=== PATIENT | female | born 1990 | race African-American/Black ===

== ENCOUNTER 2016-08-01 20:01 | Emergency (ER) | payer MEDICAID ==
[~2016-08-01] VITALS: Ht 160 cm; Wt 93.9 kg
[2016-08-01 20:25] VITALS: BP 145/89
== END 2016-08-01 23:21 | disposition left against medical advice (07) ==
LOC: ER 20:05
DX: M79.604 Pain in right leg (principal); Z53.21 Procedure and treatment not carried out due to patient leaving prior to being seen by health care provider

== ENCOUNTER 2016-09-06 16:33 | Emergency (ER) | payer MEDICAID ==
[~2016-09-06] VITALS: Ht 160 cm; Wt 93.4 kg
[2016-09-06 16:38] VITALS: BP 140/62
[2016-09-06] MEDS ORDERED: KETOROLAC TROMETH 60MG/2ML VIAL IM ONE (17:15)
== END 2016-09-06 18:10 | disposition home or self-care (01) ==
LOC: ER 16:35
DX: S16.1XXA Strain of muscle, fascia and tendon at neck level, initial encounter (principal); V49.49XA Driver injured in collision with other motor vehicles in traffic accident, initial encounter; Y93.89 Activity, other specified; Y99.8 Other external cause status; Y92.410 Unspecified street and highway as the place of occurrence of the external cause
CPT/HCPCS: 72040; 96372; 99284; J1885

== ENCOUNTER 2016-09-16 18:00 | Emergency (ER) | payer MEDICAID ==
[~2016-09-16] VITALS: Ht 154.9 cm; Wt 94.8 kg
[2016-09-16 18:13] VITALS: BP 122/80
== END 2016-09-16 20:17 | disposition left against medical advice (07) ==
LOC: ER 18:01
DX: R51 Headache (principal); Z53.29 Procedure and treatment not carried out because of patient's decision for other reasons

== ENCOUNTER 2018-11-28 21:25 | Emergency (ER) | payer SELFPAY ==
[~2018-11-28] VITALS: Ht 160 cm; Wt 98.4 kg
[2018-11-28 22:12] LABS: Basophils # (auto) 0.1 uL; Basophils % (auto) 1.2 % (0.0-2.0); Eosinophils # (auto) 0.1 uL; Eosinophils % (auto) 2.3 % (0.0-7.0); Hemoglobin 13.2 g/dL (12.2-16.2); Lymphocytes # (auto) 2.7 uL; Lymphocytes % (auto) 42.6 % (10.0-50.0); Mean Corpuscular Hemoglobin 27.7 pg (28.0-32.0); Mean Corpuscular Volume 84.1 fL (80.0-100.0); Monocytes # (auto) 0.4 uL; Monocytes % (auto) 6.7 % (0.0-12.0); Neutrophils % (auto) 47.2 % (37.0-80.0); Nucleated Red Blood Cells % 0.2 %; Platelet Count (auto) 271 10^3/uL (140-450); Red Blood Cells 4.76 10^6/uL (4.0-5.20); Red Cell Distribution Width 14.6 % (11.8-14.3); White Blood Cell 6.3 10^3/uL (4.4-10.8)
[2018-11-28 22:29] LABS: Albumin 3.7 g/dL (3.4-5.0); Calcium 9.3 mg/dL (8.5-10.1); Potassium 4.2 mmol/L (3.5-5.1)
[2018-11-28 22:33] LABS: BUN/Creatinine Ratio 23.7; Bilirubin, Total 0.3 mg/dL (0.2-1.0); Total Protein 7.6 g/dL (6.4-8.2)
[2018-11-28 22:33] LABS: Urine Amorphous Crystal MOD /hpf (None Seen); Urine Bacteria NONE SEEN /hpf (None Seen); Urine Blood Negative /uL (Negative); Urine Specific Gravity 1.028 (1.001-1.035); Urine WBC 21 /hpf (0 - 5)
[2018-11-29 07:23] VITALS: BP 133/72
== END 2018-11-29 08:13 | disposition home or self-care (01) ==
LOC: ER 21:25
DX: N39.0 Urinary tract infection, site not specified (principal); N93.9 Abnormal uterine and vaginal bleeding, unspecified
CPT/HCPCS: 36415; 76775; 76856; 80053; 81001; 84702; 85025

== ENCOUNTER 2019-04-08 08:26 | Emergency (ER) | payer MEDICAID, OTHER ==
[~2019-04-08] VITALS: Ht 160 cm; Wt 97.5 kg
[2019-04-08 08:37] VITALS: BP 129/88
[2019-04-08] MEDS ORDERED: cefTRIAXone SOD 1,000 MG VL IM ONE (09:30)
== END 2019-04-08 09:59 | disposition home or self-care (01) ==
LOC: ER 08:26
DX: J18.1 Lobar pneumonia, unspecified organism (principal); J02.9 Acute pharyngitis, unspecified
CPT/HCPCS: 71046; 96372; 99283; J0696

== ENCOUNTER 2019-08-12 05:47 | Emergency (ER) | payer MEDICAID ==
[~2019-08-12] VITALS: Ht 160 cm; Wt 98.4 kg
[2019-08-12 06:40] VITALS: BP 152/85
== END 2019-08-12 07:58 | disposition home or self-care (01) ==
LOC: ER 05:47
DX: R07.89 Other chest pain (principal)
CPT/HCPCS: 71046; 81025

== ENCOUNTER 2020-03-13 19:39 | Emergency (ER) | payer MEDICAID ==
[~2020-03-13] VITALS: Ht 160 cm; Wt 99.3 kg
[2020-03-13 22:30] VITALS: BP 133/98
== END 2020-03-13 23:36 | disposition home or self-care (01) ==
LOC: ER 19:39
DX: S93.401A Sprain of unspecified ligament of right ankle, initial encounter (principal); W19.XXXA Unspecified fall, initial encounter; Y93.89 Activity, other specified; Y92.89 Other specified places as the place of occurrence of the external cause; Y99.8 Other external cause status
CPT/HCPCS: 73610